=== PATIENT | female | born 1985 | race Caucasian/White ===

== ENCOUNTER 2018-04-19 15:49 | Day surgery (SDC) | payer OTHER ==
[2018-04-19 16:19] VITALS: BP 115/73; TEMP 98.4; BMI 24.7
--- NOTE | 2018-04-19 16:56 | PDOC.LDHP ---
Labor and Delivery H&P Allergies/Adverse Reactions: Allergies Allergy/AdvReac Type Severity Reaction Status Date / Time cefixime [From Suprax] Allergy Verified 04/19/18 16:20 Sulfa (Sulfonamide Allergy Verified 04/19/18 16:20 Antibiotics)
--- NOTE | 2018-04-19 23:31 | HP-2 ---
CHIEF COMPLAINT: Contractions. HISTORY OF PRESENT ILLNESS: Ms. Miller is a 32-year-old G4, P2 female at 37 and 3 days gestation who comes in with a chief complaint of contractions. She states her contractions are at about 7:00 p.m. last night and got more regular around 11:00 p.m. She states she feels contractions every 4-6 minute s. She states that the contractions are worse when she is standing up and walking around, but spaced out when she sits down. She has had no spears of fluids. No bleeding. No discharge. No burning wit h urination. Still feels the baby moving currently. Denies headache. Denies shortness of breath or swelling. DATING CRITERIA: First trimester ultrasound. OB HISTORY: Vaginal delivery in 2014, 8 pounds 10 ounces, no complications. Vaginal delivery in 2, vacuum delivery. Current , complications none. Abnormal ultrasound findings, none. PAST MEDICAL HISTORY: Asthma, migraines. CURRENT MEDICATIONS: vitamins. PREVIOUS SURGICAL HISTORY: None. ALLERGIES: CEFIXIME, SULFA. SOCIAL HISTORY: Denies tobacco, alcohol, or drug use. PHYSICAL EXAMINATION: VITAL SIGNS: Reviewed. Temperature 98.4, pulse 95, respiratory rate 18, blood pressure 115/73. GENERAL: No acute distress. HEART: Regular rate and rhythm. No murmur. LUNGS: Clear to auscultation bilaterally. No labored breathing. ABDOMEN: Gravid, nontender to palpation. EXTREMITIES: No edema. HEART TONES: Category 1, accelerations present. VAGINAL EXAM: 2, 50, -3. OB LABS: O positive, antibody screen negative. Initial OB labs negative. LABOR AND DELIVERY ASSESSMENT: Term patient not in labor. PLAN: The patient was checked in the clinic 4 days ago. Vaginal exam was the same. One contraction seen on the 20-minute strip during the time in triage. Category 1 strip. We will send the patient home with labor precautions. The patient to return if she has a fever, contractions become more freq uent and more severe, rupture of membranes, or bloody discharge.
== END 2018-04-19 16:55 | disposition home or self-care (01) ==
LOC: L&D/OP 15:49
PROVIDERS: ATTEND Student in an Organized Health Care Education/Training Program
DX: O47.1 False labor at or after 37 completed weeks of gestation (principal); Z88.1 Allergy status to other antibiotic agents; Z88.2 Allergy status to sulfonamides; Z79.899 Other long term (current) drug therapy; Z3A.37 37 weeks gestation of pregnancy
CPT/HCPCS: 99282

== ENCOUNTER 2018-04-26 01:31 | Inpatient (IN) | payer OTHER ==
[2018-04-26 02:02] VITALS: BMI 24.7
[2018-04-26 02:25] LABS: Amnisure Internal Control QC ACCEPTABLE (ACCEPTABLE)
[2018-04-26 02:34] LABS: Amnisure Test No Membranes Rupture (No Rupture)
[2018-04-26] MEDS ORDERED: HYDROcodone/Acetaminophen 5/325 mg Tablet PO PRN ×4 (04:28→21:36)
[2018-04-26] MEDS ORDERED: Acetaminophen 500 MG TAB PO PRN (04:28)
[2018-04-26] MEDS ORDERED: Promethazine HCl 25 MG/ML VIAL IM PRN (04:28)
[2018-04-26] MEDS ORDERED: Lidocaine 1% (PF) 30 ML VIAL SC PRN (04:28)
[2018-04-26] MEDS ORDERED: Methylergonovine 0.2 MG/ML VIAL IM PRN (04:28)
[2018-04-26] MEDS ORDERED: Butorphanol Tartrate 1 MG/ML VIAL SLOW IVP PRN (04:28)
[2018-04-26] MEDS ORDERED: Misoprostol 200 MCG TAB PR PRN (04:28)
[2018-04-26] MEDS ORDERED: Ondansetron HCl/PF 4 MG/2 ML Vial IVP PRN ×2 (04:28→21:36)
[2018-04-26] MEDS ORDERED: Ibuprofen 800 MG TAB PO PRN (04:28)
[2018-04-26] MEDS ORDERED: Lactated Ringer's 1,000 ML IV SCH ×2 (04:30)
--- NOTE | 2018-04-26 04:35 | PDOC.LDHP ---
Labor and Delivery H&P Chief complaint: contractions HPI: 32 yo WF EDC= 05/07/18 presents c/o regular UCs since last PM. Denies bleeding or SROM. Current gestational age (weeks): 38 Due date: 05/07/18 Dating criteria: last menstrual period Grav: 4 Para: 2 OB History Details: Initial care at [facility]. Sees Dr. Hernandez now. Believes GBS was negative. Current complications: none Abnormal US findings: No Past Medical History: migraine LYONS Current medications: pre-ondina vitamins Previous surgical history: other (umbilical hernia, arm fx.) Allergies/Adverse Reactions: Allergies Allergy/AdvReac Type Severity Reaction Status Date / Time cefixime [From Suprax] Allergy Verified 04/26/18 01:54 Sulfa (Sulfonamide Allergy Verified 04/26/18 01:54 Antibiotics) Social history: none - Physical Exam Vital signs reviewed and normal: yes General: breathing through contractions Lungs: nonlabored breathing Abdomen: gravid Extremeties: trace edema FHT: category 1 [place] contractions every: UCs q 3-5 mins. - Vaginal Exam cm dilated: 5 Effacement: 90% Station: -1 - OB Labs Blood type: O RH: positive Antibody Screen: positive HIV: negative RPR: negative HEPSAg: negative 1 hour GCT: negative Rubella: immune - Assessment L&D Assessment: term patient in labor - Plan Plan: admit to L&D (Wants low intervention. Dr. Hernandez notified.)
[2018-04-26 05:19] LABS: Hemoglobin 11.8 g/dL (12.0-16.0); Mean Corpuscular HGB CONC 35.2 g/dL (32.0-36.0); Mean Corpuscular Hemoglobin 30.9 pg (27.0-31.0); Mean Corpuscular Volume 87.9 fL (78.0-98.0); Mean Platelet Volume 8.1 fL (7.4-10.4); Platelet Count 209 thou/uL (130-400); RBC Distribution Width 13.2 % (11.5-14.5); White Blood Cell (WBC) Count 9.6 thou/uL (4.8-10.8)
[2018-04-26 06:13] LABS: HBSAg Index 0.19 S/CO (0-0.99); Hep B Surf Ag Non-Reactive S/CO (NonReactive)
[2018-04-26 06:15] LABS: Syphilis Antibody Nonreactive (Nonreactive); Syphilis Antibody Index 0.04 S/CO (<1.00 Non-Reactive)
--- NOTE | 2018-04-26 16:33 | PDOC.LDPN ---
Labor & Delivery Progress Note - Subjective Subjective: comfortable - Objective Vital signs reviewed and normal: yes General: NAD Uterine fundus: non tender Dilation: 6 Effacement: 50% Station: -2 (arom clear) FHT: category 1 AROM: clear fluid - Assessment (1) Term Code(s): Z34.80 - ENCOUNTER FOR SUPRVSN OF NORMAL , UNSP TRIMESTER Current Visit: Yes Status: Acute Plan: continue plan of care
[2018-04-26] MEDS: NS / Oxytocin 40 units/1000ml 1,000 ML IV PRN ×2 (18:10→19:16)
--- NOTE | 2018-04-26 18:19 | PDOC.OPDEL ---
OB Operative/Delivery Note Delivery Dr/Surgeon: David Assist: n/a Pre-Delivery Diagnosis: active labor Procedure/Post Delivery Dx: spontaneous vaginal delivery Weeks gestation: 38 Anesthesia: none - Findings A Sex: female - 1 min: 8 - 5 min: 9 - Additional Findings/Plan Placenta delivered: spontaneous Repaired Obstetrical Laceration: none Estimated blood loss: 100 Post delivery plan: routine recovery
[2018-04-26] MEDS ORDERED: Benzocaine/Menthol 20-0.5% 60 ML CAN TOP PRN (21:36)
[2018-04-26] MEDS ORDERED: NS / Oxytocin 40 units/1000ml 1,000 ML IV SCH (21:36)
[2018-04-26] MEDS ORDERED: Adacel (T-DAP) 0.5 ML VIAL IM ONE (21:36)
[2018-04-26] MEDS ORDERED: Milk Of Magnesia 30 ML UDCUP PO PRN (21:36)
[2018-04-26] MEDS ORDERED: Bisacodyl 10 MG SUPP PR PRN (21:36)
[2018-04-26] MEDS ORDERED: Preparation H Ointment 28 GM TUBE PR PRN (21:36)
[2018-04-26] MEDS ORDERED: Lanolin Ointment 7 GM TUBE TOP PRN (21:36)
[2018-04-26] MEDS ORDERED: diphenhydrAMINE 25 MG CAP PO PRN (21:36)
[2018-04-26] MEDS ORDERED: Docusate Calcium (SURFAK) 240 MG CAP PO SCH (21:45)
[2018-04-26] MEDS: Ibuprofen 800 MG TAB PO SCH (22:02)
[2018-04-27] MEDS: Ibuprofen 800 MG TAB PO SCH ×2 (06:42→13:31)
--- NOTE | 2018-04-27 07:34 | PDOC.PP ---
Post Progress Note Post Day #: 1 PO intake tolerated: yes Flatus: yes Ambulation: yes Vital Signs (12 hours) Temp Pulse Resp BP Pulse Ox 04/27/18 03:30 97.5 F L 64 18 111/71 04/27/18 00:00 97.9 F 68 18 103/55 L 04/26/18 23:30 97.9 F 68 18 103/55 L 04/26/18 22:25 97.9 F 64 18 108/65 04/26/18 21:36 98.8 F 94 18 04/26/18 21:25 98.0 F 71 20 109/67 97 Weight Weight 135 lb - Physical Examination General: NAD Cardiovascular: RRR Respiratory: non-labored breathing Abdominal: no distention, appropriately TTP Fundus firm & at: umb Neurological: no gross focal deficits Psychiatric: normal affect Result Diagrams: 04/26/18 04:45 Additional Labs: Post Labs Blood Type O POSITIVE 04/26/18 04:45 Hep Bs Antigen Non-Reactive S/CO (NonReactive) 04/26/18 04:45 (1) Term Code(s): Z34.80 - ENCOUNTER FOR SUPRVSN OF NORMAL , UNSP TRIMESTER Status: Acute - Assessment/Plan PPD1 s/p low intervention TSVD VSSAF Doing well lochia appropriate Rh pos RImm DC home FU 6wk
[2018-04-27] MEDS ORDERED: Docusate Calcium (SURFAK) 240 MG CAP PO SCH (09:00)
[2018-04-27] MEDS ORDERED: Prenatal Vitamin 1 TAB PO SCH (09:00)
[2018-04-27] MEDS: Ferrous Sulfate 325 MG TAB PO SCH ×2 (09:33→17:59)
[2018-04-27 21:33] VITALS: BP 114/75; TEMP 97.8
== END 2018-04-27 20:10 | disposition home or self-care (01) | DRG 775 ==
LOC: L&D/OP 01:31 → L&D-LIB 05:01 → 3SW 21:26
PROVIDERS: ADMIT Student in an Organized Health Care Education/Training Program; ATTEND Student in an Organized Health Care Education/Training Program
PROC: 10E0XZZ Delivery of Products of Conception, External Approach (ICD-10-PCS; principal; 2018-04-26)
DX: O80 Encounter for full-term uncomplicated delivery (principal); Z3A.38 38 weeks gestation of pregnancy; Z37.0 Single live birth
CPT/HCPCS: 84112; 85027; 86780; 86850; 86900; 86901; 87340; J2001